=== PATIENT | female | born 2000 | race Caucasian/White ===

== ENCOUNTER 2022-06-03 13:33 | Emergency (ER) | payer MEDICAID ==
[~2022-06-03] VITALS: Ht 165.1 cm; Wt 100.0 kg
[2022-06-03 14:07] VITALS: BP 100/60
[2022-06-03 15:06] LABS: BASO% 0.2 % (0-3); EOS% 4.5 % (0-8); HEMOGLOBIN 12.4 g/dl (12.0-16.0); IMMATURE GRANULOCYTES 0.2 % (0.0-5.0); MEAN CELL VOLUME 93.8 fL CALC (80.0-100.0); MEAN CORPUSCULAR HGB 29.8 pG CALC (26.0-32.0); MEAN CORPUSCULAR HGB CONC 31.8 g/dL CAL (32.0-36.0); MONO% 7.7 % (2-13); NEUT# 8.65 thou/uL (2.00-7.15); NEUT% 68.4 % (42-76); RED BLOOD COUNT 4.16 mill/uL (4.20-5.60); RED CELL DISTRI WIDTH 13.7 % (11.5-15.5)
[2022-06-03 15:17] LABS: ALBUMIN 4.1 g/dL (3.2-5.0); ALKALINE PHOSPHATASE 59 u/l (38-126); ANION GAP 9 (6-22 (CALC)); BUN 11 mg/dL (7-17); BUN/CREATININE RATIO 13 (12-20 (CALC)); CARBON DIOXIDE 24 mmol/l (22-30); CHLORIDE 107 mmol/l (95-108); CREATININE 0.8 mg/dL (0.5-1.0); GFR FOR AFR.AMER. > 60 ML/MIN (>=60 (CALC)); GFR OTHER RACES > 60 ML/MIN (>=60 (CALC)); SGOT/AST 20 u/l (14-36); SODIUM 136 mmol/l (137-146)
[2022-06-03 15:34] LABS: BETA-HCG, QUANT(RESULT NUMBER) <2 mIU/mL
[2022-06-03] MEDS ORDERED: NAPROXEN500 MG PO (17:24)
[2022-06-03 17:27] VITALS: BP 100/60
[2022-06-03 17:29] LABS: URINE BILIRUBIN - DIPSTICK NEGATIVE (NEGATIVE); URINE BLOOD DIPSTICK LARGE (NEGATIVE); URINE GLUCOSE - DIPSTICK NEGATIVE (NEGATIVE); URINE KETONE NEGATIVE (NEGATIVE); URINE LEUK ESTERASE NEGATIVE (NEGATIVE); URINE PROTEIN - DIPSTICK TRACE mg/dL (NEG-TRACE); URINE UROBILINOGEN - DIPSTICK 0.2 E.U./dL (0.2)
[2022-06-03 17:40] LABS: URINE NITRITE - DIPSTICK NEGATIVE (Negative)
[2022-06-03 17:41] LABS: URINE COLOR PINK
[2022-06-03 17:43] LABS: URINE RBC 50-100 RBC/hpf (0-5); URINE SQUAMOUS EPITHELIAL CELL FEW EPI/hpf (0-FEW)
== END 2022-06-03 18:35 | disposition home or self-care (01) ==
LOC: ED 13:33
PROVIDERS: Family Medicine; Nurse Practitioner
DX: N93.9 Abnormal uterine and vaginal bleeding, unspecified (principal); F17.290 Nicotine dependence, other tobacco product, uncomplicated
CPT/HCPCS: Q9967

== ENCOUNTER 2022-09-19 00:32 | Emergency (ER) | payer BC, MEDICAID ==
[~2022-09-19] VITALS: Ht 165.1 cm; Wt 96.0 kg
[~2022-09-19 00:32] MED LIST: NAPROXEN500 MG PO
[2022-09-19 01:02] VITALS: BP 111/69
[2022-09-19] MEDS ORDERED: MED MARIJUANA (01:10)
[2022-09-19 01:28] LABS: BASO% 0.2 % (0-3); EOS% 4.5 % (0-8); HEMATOCRIT 37.8 % (37.0-47.0); HEMOGLOBIN 12.3 g/dl (12.0-16.0); IMMATURE GRANULOCYTES 0.5 % (0.0-5.0); LYMPH% 27.9 % (15-41); MEAN CELL VOLUME 93.8 fL CALC (80.0-100.0); MEAN CORPUSCULAR HGB 30.5 pG CALC (26.0-32.0); MEAN CORPUSCULAR HGB CONC 32.5 g/dL CAL (32.0-36.0); MONO% 7.9 % (2-13); NEUT# 8.75 thou/uL (2.00-7.15); RED BLOOD COUNT 4.03 mill/uL (4.20-5.60)
[2022-09-19 01:39] LABS: URINE BILIRUBIN - DIPSTICK NEGATIVE (NEGATIVE); URINE BLOOD DIPSTICK NEGATIVE (NEGATIVE); URINE COLOR YELLOW; URINE GLUCOSE - DIPSTICK NEGATIVE (NEGATIVE); URINE KETONE NEGATIVE (NEGATIVE); URINE LEUK ESTERASE NEGATIVE (NEGATIVE); URINE PH 5.5 (4.5-8.0); URINE PROTEIN - DIPSTICK NEGATIVE (NEG-TRACE); URINE SPECIFIC GRAVITY >=1.030; URINE UROBILINOGEN - DIPSTICK 0.2 E.U./dL (0.2)
[2022-09-19 01:44] LABS: URINE NITRITE - DIPSTICK NEGATIVE (Negative)
[2022-09-19 01:47] LABS: ALBUMIN 4.1 g/dL (3.2-5.0); ALKALINE PHOSPHATASE 49 u/l (38-126); AMYLASE 71 u/l (30-110); ANION GAP 9 (6-22 (CALC)); BUN 11 mg/dL (7-17); BUN/CREATININE RATIO 14 (12-20 (CALC)); CARBON DIOXIDE 27 mmol/l (22-30); CHLORIDE 108 mmol/l (95-108); CREATININE 0.8 mg/dL (0.5-1.0); GFR FOR AFR.AMER. > 60 ML/MIN (>=60 (CALC)); GFR OTHER RACES > 60 ML/MIN (>=60 (CALC)); LIPASE 130 u/l (23-300); POTASSIUM 3.7 mmol/l (3.5-5.1); SGOT/AST 21 u/l (14-36); SODIUM 140 mmol/l (137-146); TOTAL PROTEIN 7.3 g/dL (6.3-8.2)
[2022-09-19] MEDS ORDERED: ONDANSETRON4 MG PO (04:20)
[2022-09-19] MEDS ORDERED: PREVACID30 M1 PO (04:20)
[2022-09-19] MEDS ORDERED: BACTRIM DS1 TAB PO (04:20)
[2022-09-19 04:24] VITALS: BP 111/69
== END 2022-09-19 04:34 | disposition home or self-care (01) | DRG 392 ==
LOC: ED 00:32
PROVIDERS: Emergency Medicine
DX: K29.70 Gastritis, unspecified, without bleeding (principal); F41.9 Anxiety disorder, unspecified; F17.200 Nicotine dependence, unspecified, uncomplicated
CPT/HCPCS: Q9967

== ENCOUNTER 2022-10-16 15:02 | Emergency (ER) | payer BC, MEDICAID ==
[~2022-10-16] VITALS: Ht 165.1 cm; Wt 98.0 kg
[~2022-10-16 15:02] MED LIST changes: +BACTRIM DS1 TAB PO; +MED MARIJUANA; +ONDANSETRON4 MG PO; +PREVACID30 M1 PO
[2022-10-16 15:10] VITALS: BP 113/59
[2022-10-16 15:15] VITALS: BP 105/51
[2022-10-16 15:45] LABS: BASO% 0.2 % (0-3); EOS% 3.5 % (0-8); HEMATOCRIT 39.8 % (37.0-47.0); HEMOGLOBIN 12.8 g/dl (12.0-16.0); IMMATURE GRANULOCYTES 0.5 % (0.0-5.0); LYMPH% 18.2 % (15-41); MEAN CELL VOLUME 94.5 fL CALC (80.0-100.0); MEAN CORPUSCULAR HGB 30.4 pG CALC (26.0-32.0); MEAN CORPUSCULAR HGB CONC 32.2 g/dL CAL (32.0-36.0); MONO% 7.6 % (2-13); NEUT# 9.4 thou/uL (2.00-7.15); RED BLOOD COUNT 4.21 mill/uL (4.20-5.60); RED CELL DISTRI WIDTH 13.2 % (11.5-15.5)
[2022-10-16 15:56] LABS: ALBUMIN 4.2 g/dL (3.2-5.0); ALKALINE PHOSPHATASE 61 u/l (38-126); AMYLASE 78 u/l (30-110); ANION GAP 10 (6-22 (CALC)); BUN 11 mg/dL (7-17); BUN/CREATININE RATIO 14 (12-20 (CALC)); CARBON DIOXIDE 25 mmol/l (22-30); CHLORIDE 109 mmol/l (95-108); CREATININE 0.8 mg/dL (0.5-1.0); GFR FOR AFR.AMER. > 60 ML/MIN (>=60 (CALC)); GFR OTHER RACES > 60 ML/MIN (>=60 (CALC)); LIPASE 171 u/l (23-300); POTASSIUM 3.7 mmol/l (3.5-5.1); SGOT/AST 24 u/l (14-36); SODIUM 141 mmol/l (137-146); TOTAL PROTEIN 7.6 g/dL (6.3-8.2)
[2022-10-16 15:57] LABS: BILIRUBIN, TOTAL 0.4 mg/dL (0.02-1.3)
[2022-10-16 16:21] LABS: URINE BILIRUBIN - DIPSTICK NEGATIVE (NEGATIVE); URINE BLOOD DIPSTICK NEGATIVE (NEGATIVE); URINE COLOR YELLOW; URINE GLUCOSE - DIPSTICK NEGATIVE (NEGATIVE); URINE KETONE NEGATIVE (NEGATIVE); URINE LEUK ESTERASE NEGATIVE (NEGATIVE); URINE PH 7.5 (4.5-8.0); URINE PROTEIN - DIPSTICK NEGATIVE (NEG-TRACE); URINE UROBILINOGEN - DIPSTICK 0.2 E.U./dL (0.2)
[2022-10-16 16:22] LABS: URINE NITRITE - DIPSTICK NEGATIVE (Negative)
[2022-10-16 16:27] LABS: URINE SQUAMOUS EPITHELIAL CELL MANY EPI/hpf (0-FEW)
[2022-10-16 16:28] LABS: URINE AMORPH SEDIMENT MANY hpf (NONE-FEW)
[2022-10-16] MEDS ORDERED: PROTONIX40 M2 PO (18:09)
[2022-10-16] MEDS ORDERED: DICYCLOMINE10 MG PO (18:09)
[2022-10-16 18:42] VITALS: BP 105/51
== END 2022-10-16 18:45 | disposition home or self-care (01) | DRG 392 ==
LOC: ED 15:02
PROVIDERS: Nurse Practitioner
DX: R10.12 Left upper quadrant pain (principal); F41.9 Anxiety disorder, unspecified
CPT/HCPCS: Q9967

== ENCOUNTER 2022-12-02 02:43 | Emergency (ER) | payer BC, MEDICAID ==
[~2022-12-02] VITALS: Ht 165.1 cm; Wt 104.0 kg
[2022-12-02] VITALS (9 sets, daily range): BP systolic 105–125; BP diastolic 61–90
[~2022-12-02 02:43] MED LIST changes: +DICYCLOMINE10 MG PO; +PROTONIX40 M2 PO
[2022-12-02 03:35] LABS: BASO% 0.3 % (0-3); EOS% 5.1 % (0-8); HEMATOCRIT 40.5 % (37.0-47.0); HEMOGLOBIN 12.9 g/dl (12.0-16.0); IMMATURE GRANULOCYTES 0.1 % (0.0-5.0); LYMPH% 32.2 % (15-41); MEAN CELL VOLUME 96.4 fL CALC (80.0-100.0); MEAN CORPUSCULAR HGB 30.7 pG CALC (26.0-32.0); MEAN CORPUSCULAR HGB CONC 31.9 g/dL CAL (32.0-36.0); MONO% 8.9 % (2-13); NEUT# 7.18 thou/uL (2.00-7.15); NEUT% 53.4 % (42-76); RED BLOOD COUNT 4.2 mill/uL (4.20-5.60); RED CELL DISTRI WIDTH 13.4 % (11.5-15.5)
[2022-12-02 03:37] LABS: URINE BILIRUBIN - DIPSTICK Negative (NEGATIVE); URINE BLOOD DIPSTICK Negative (NEGATIVE); URINE GLUCOSE - DIPSTICK Negative (NEGATIVE); URINE KETONE Negative (NEGATIVE); URINE NITRITE - DIPSTICK Negative (Negative); URINE PH 6.5 (4.5-8.0); URINE PROTEIN - DIPSTICK Negative (NEG-TRACE)
[2022-12-02 03:38] LABS: URINE COLOR Yellow; URINE LEUK ESTERASE Small (NEGATIVE)
[2022-12-02 03:43] LABS: URINE BACTERIA FEW hpf; URINE RBC 0-2 RBC/hpf (0-5); URINE SQUAMOUS EPITHELIAL CELL FEW EPI/hpf (0-FEW)
[2022-12-02 03:50] LABS: ALBUMIN 4.1 g/dL (3.2-5.0); ALKALINE PHOSPHATASE 52 u/l (38-126); ANION GAP 9 (6-22 (CALC)); BUN 10 mg/dL (7-17); BUN/CREATININE RATIO 13 (12-20 (CALC)); CARBON DIOXIDE 29 mmol/l (22-30); CHLORIDE 105 mmol/l (95-108); CREATININE 0.8 mg/dL (0.5-1.0); GFR FOR AFR.AMER. > 60 ML/MIN (>=60 (CALC)); GFR OTHER RACES > 60 ML/MIN (>=60 (CALC)); POTASSIUM 3.8 mmol/l (3.5-5.1); SGOT/AST 27 u/l (14-36); SODIUM 139 mmol/l (137-146); TOTAL PROTEIN 7.3 g/dL (6.3-8.2)
[2022-12-02 03:56] LABS: BILIRUBIN, TOTAL 0.2 mg/dL (0.02-1.3)
[2022-12-02] MEDS ORDERED: KEFLEX500 MG PO (04:46)
== END 2022-12-02 04:56 | disposition home or self-care (01) | DRG 313 ==
LOC: ED 02:43
PROVIDERS: Emergency Medicine
DX: R07.89 Other chest pain (principal); N39.0 Urinary tract infection, site not specified; F41.9 Anxiety disorder, unspecified; F32.A Depression, unspecified; Z20.822 Contact with and (suspected) exposure to COVID-19

== ENCOUNTER 2022-12-17 19:24 | Emergency (ER) | payer BC, MEDICAID ==
[~2022-12-17] VITALS: Ht 165.1 cm; Wt 104.0 kg
[~2022-12-17 19:24] MED LIST changes: +KEFLEX500 MG PO
[2022-12-17] MEDS ORDERED: VOLTAREN - GENE75 MG PO (21:29)
[2022-12-17 21:39] VITALS: BP 105/78
== END 2022-12-17 21:40 | disposition home or self-care (01) | DRG 558 ==
LOC: ED 19:24
DX: M77.51 Other enthesopathy of right foot and ankle (principal); F41.9 Anxiety disorder, unspecified; F32.A Depression, unspecified; F17.200 Nicotine dependence, unspecified, uncomplicated

== ENCOUNTER 2023-05-22 20:47 | Emergency (ER) | payer BC, MEDICAID ==
[~2023-05-22] VITALS: Ht 165.1 cm; Wt 104.3 kg
[~2023-05-22 20:47] MED LIST changes: +DICYCLOMINE HCL20 MG PO; +OMEPRAZOLE DR40 MG PO; +OMEPRAZOLE20 MG PO; +VOLTAREN - GENE75 MG PO
[2023-05-22 23:40] LABS: BASO% 0.2 % (0-3); EOS% 5.3 % (0-8); HEMATOCRIT 39.2 % (37.0-47.0); HEMOGLOBIN 12.4 g/dl (12.0-16.0); IMMATURE GRANULOCYTES 0.1 % (0.0-5.0); LYMPH% 36.5 % (15-41); MEAN CORPUSCULAR HGB 29.7 pG CALC (26.0-32.0); MEAN CORPUSCULAR HGB CONC 31.6 g/dL CAL (32.0-36.0); MONO% 7.5 % (2-13); NEUT# 6.14 thou/uL (2.00-7.15); NEUT% 50.4 % (42-76); RED BLOOD COUNT 4.17 mill/uL (4.20-5.60); RED CELL DISTRI WIDTH 12.6 % (11.5-15.5)
[2023-05-22 23:57] LABS: ALBUMIN 4.3 g/dL (3.2-5.0); ALKALINE PHOSPHATASE 53 u/l (38-126); AMYLASE 60 u/l (30-110); ANION GAP 11 (6-22 (CALC)); BILIRUBIN, TOTAL 0.2 mg/dL (0.02-1.3); BUN 14 mg/dL (7-17); BUN/CREATININE RATIO 17 (12-20 (CALC)); CARBON DIOXIDE 27 mmol/l (22-30); CHLORIDE 107 mmol/l (95-108); CREATININE 0.8 mg/dL (0.5-1.0); GFR FOR AFR.AMER. > 60 ML/MIN (>=60 (CALC)); GFR OTHER RACES > 60 ML/MIN (>=60 (CALC)); POTASSIUM 4.1 mmol/l (3.5-5.1); SGOT/AST 25 u/l (14-36); SODIUM 140 mmol/l (137-146); TOTAL PROTEIN 7.4 g/dL (6.3-8.2)
[2023-05-23 01:22] LABS: URINE BILIRUBIN - DIPSTICK Negative (NEGATIVE); URINE BLOOD DIPSTICK Trace-intact (NEGATIVE); URINE COLOR Yellow; URINE GLUCOSE - DIPSTICK Negative (NEGATIVE); URINE KETONE Negative (NEGATIVE); URINE LEUK ESTERASE Negative (NEGATIVE); URINE NITRITE - DIPSTICK Negative (Negative); URINE PROTEIN - DIPSTICK Negative (NEG-TRACE); URINE SPECIFIC GRAVITY >=1.030; URINE UROBILINOGEN - DIPSTICK 0.2 E.U./dL (0.2)
[2023-05-23] MEDS ORDERED: PANTOPRAZOLE SODIUM Sesquihydr 40 MG/TAB PO ONE (02:30)
[2023-05-23 02:43] VITALS: BP 121/71
== END 2023-05-23 02:20 | disposition home or self-care (01) | DRG 392 ==
LOC: ED 20:47
PROVIDERS: Family Medicine
DX: K29.70 Gastritis, unspecified, without bleeding (principal); F32.A Depression, unspecified; F41.9 Anxiety disorder, unspecified

== ENCOUNTER 2024-04-01 12:51 | Emergency (ER) | payer OTHER, BC ==
[~2024-04-01] VITALS: Ht 165.1 cm; Wt 114.0 kg
[~2024-04-01 12:51] MED LIST changes: +ZOFRAN4 MG/TAB PO
[2024-04-01] MEDS ORDERED: Diph, Acellular Pertussis, Tet 0.5 ML/VIAL (Tdap) SDV IM ONE (13:25)
[2024-04-01 13:57] VITALS: BP 129/77
== END 2024-04-01 14:06 | disposition home or self-care (01) | DRG 605 ==
LOC: ED 12:51
PROC: 0HQGXZZ Repair Left Hand Skin, External Approach (ICD-10-PCS; principal; 2024-04-01)
DX: S61.012A Laceration without foreign body of left thumb without damage to nail, initial encounter (principal); F41.9 Anxiety disorder, unspecified; F32.A Depression, unspecified; F17.290 Nicotine dependence, other tobacco product, uncomplicated; W26.0XXA Contact with knife, initial encounter; Y92.89 Other specified places as the place of occurrence of the external cause; Y99.0 Civilian activity done for income or pay
CPT/HCPCS: 90715